=== PATIENT | male | born 1995 | race Caucasian/White ===

== ENCOUNTER 2022-10-08 17:53 | Emergency (ER) | payer OTHER, SELFPAY ==
[2022-10-08 17:53] VITALS: BP 141/56; PULSE 93; RESP 16; TEMP 36.8; O2SAT 99
[2022-10-08 18:31] VITALS: BP 131/55; O2SAT 99
[2022-10-08 18:59] LABS: Basophils Absolute Auto 0.1 K/mm3 (0.0-0.1); Basophils Percent Auto 0.4 % (0.2-1.2); Eosinophils Absolute Auto 0.1 K/mm3 (0-0.3); Eosinophils Percent Auto 0.3 % (0-4.4); Hematocrit 44.2 % (42.0-52.0); Hemoglobin 14.8 g/dL (14.0-18.0); Immature Granulocyte Absolute 0.14 K/mm3 (0.00-0.031); Immature Granulocyte Percent A 0.8 % (0-0.5); Lymphocytes Absolute Auto 1.02 K/mm3 (0.9-3.2); Lymphocytes Percent Auto 5.8 % (18.3-44.2); Mean Corpuscular HGB Conc 33.5 g/dl (32-36); Mean Corpuscular Hemoglobin 31.2 pg (26-34); Mean Corpuscular Volume 93.1 fl (80-100); Mean Platelet Volume 9.3 fl (7.4-10.4); Monocytes Absolute Auto 1.4 K/mm3 (0.1-0.6); Monocytes Percent Auto 7.9 % (2.6-8.5); Neutrophils Percent Auto 84.8 % (45.5-73.1); Platelet Count Result 140 k/mm3 (150-375); Red Blood Count 4.75 M/mm3 (4.6-6.20); Red Cell Distribution Width 13.4 % (11.5-14.5); White Blood Count 17.7 K/mm3 (4.5-10.0)
[2022-10-08 19:09] LABS: Alanine Aminotransferase 23 U/L (6-50); Albumin Level 4.2 g/dL (3.5-5.1); Alkaline Phosphatase 63 U/L (38-126); Anion Gap 7 mmol/L (8-16); Aspartate Amino Transferase 24 U/L (17-59); Bilirubin,Total 0.8 mg/dL (0.2-1.3); Blood Urea Nitrogen 11 mg/dL (9-20); Calcium 9.1 mg/dL (8.4-10.2); Carbon Dioxide 25 mmol/L (22-30); Chloride 104 mmol/L (98-107); Estimated CRCL calculation 157 ml/min; Estimated Glomerular Filt Rate > 60; Glucose 108 mg/dL (65-110); Potassium 3.8 mmol/L (3.4-5.0); Sodium 136 mmol/L (137-145)
[2022-10-08 19:11] VITALS: BP 135/58; PULSE 78; RESP 14; TEMP 37; O2SAT 100
[2022-10-08 19:18] LABS: Monoscreen Negative (Negative); Negative Monotest Control Negative (Negative); Positive Monotest Control Positive (Positive)
[2022-10-08 19:38] LABS: Strep Group A RT-PCR NOT DETECTED (Negative)
--- NOTE | 2022-10-08 19:43 | ED.GENADULT ---
HPI - General Adult General Chief complaint: Unspecified Stated complaint: tonsil pain Time Seen by Provider: 10/08/22 18:11 Source: patient Mode of arrival: ambulatory Limitations: no limitations History of Present Illness HPI narrative: This is a 26-year-old male who presents to the ED with chief complaint of sore throat and dysphagia for the past 3 days. Patient states he has history of multiple episodes of strep throat in the past. Reports he feels his tonsils are swollen. Reports swollen lymph nodes as well. Reports he is able to swallow liquids and solids, it is just somewhat difficult and painful at times. Reports associated malaise and bodyaches. Reports some night sweats. Reports a nonproductive cough. Denies any fevers, nausea, vomiting, rhinorrhea, chest pain, shortness of breath. Related Data Allergies Allergy/AdvReac Type Severity Reaction Status Date / Time No Known Allergies Allergy Verified 10/08/22 18:06 Review of Systems Review of Systems: All systems as dictated in HPI Exam Narrative: GENERAL: Well-appearing, well-nourished, and in no acute distress. HEAD: Normocephalic, atraumatic. EYES: PERRLA and EOMI. ENT: Bilateral 2+ tonsillar hypertrophy. Exudative lesions to bilateral tonsils. Posterior pharynx is without exudates but is erythematous. Uvula midline. Tolerating secretions. Airway intact. No trismus or drooling. Floor the mouth intact. No muffled voice Mild anterior cervical lymphadenopathy. Nares clear, no rhinorrhea or epistaxis. Mucous membranes moist. NECK: Supple. No adenopathy or masses. CHEST: No respiratory distress. Clear to auscultation. No wheezes rales or rhonchi HEART: Regular rate and rhythm. No murmur heard. Normal peripheral pulses. ABDOMEN: Soft, nontender, nondistended, normal active bowel sounds. MSK: Normal range of motion. No edema. SKIN: Warm, dry, no rash. NEURO: Alert and oriented x3. No focal deficits. PSYCH: Normal mood and affect. Course Vital Signs Vital signs: Vital Signs Temperature 98.2 F 10/08/22 17:53 Pulse Rate 93 10/08/22 17:53 Respiratory Rate 16 10/08/22 17:53 Blood Pressure 141/56 H 10/08/22 17:53 Pulse Oximetry 99 10/08/22 17:53 Oxygen Delivery Room Air 10/08/22 17:53 Temperature 98.6 F 10/08/22 19:11 Pulse Rate 93 10/08/22 20:25 Respiratory Rate 17 10/08/22 20:25 Blood Pressure 134/53 L 10/08/22 20:25 Pulse Oximetry 100 10/08/22 20:25 Oxygen Delivery Room Air 10/08/22 17:53 Medical Decision Making MDM Narrative Medical decision making narrative: This is a 26-year-old male who presents to the ED with chief complaint of sore throat and other viral URI symptoms. Vitals are normal. Afebrile. Exam does show erythematous, hypertrophied tonsils with exudates bilaterally. Uvula is midline. Low concern for TUBE BENDER or other deep space infection. He is tolerating secretions and does not have a muffled voice. Lab work does reveal an elevated white count but is otherwise unremarkable. Negative mono, strep, flu, COVID. Symptoms are consistent with pharyngitis. Prescribing Augmentin for possible false negative on the strep test today. Referral to ENT doctor given. He is stable for discharge. Feeling better with dexamethasone. Return precautions given and supportive measures discussed. Patient is understanding and agreeable with plan for discharge and follow-up with PCP/ENT. Vital Signs Vital Signs: Vital Signs Temperature 98.2 F 10/08/22 17:53 Pulse Rate 93 10/08/22 17:53 Respiratory Rate 16 10/08/22 17:53 Blood Pressure 141/56 H 10/08/22 17:53 Pulse Oximetry 99 10/08/22 17:53 Oxygen Delivery Room Air 10/08/22 17:53 Temperature 98.6 F 10/08/22 19:11 Pulse Rate 93 10/08/22 20:25 Respiratory Rate 17 10/08/22 20:25 Blood Pressure 134/53 L 10/08/22 20:25 Pulse Oximetry 100 10/08/22 20:25 Oxygen Delivery Room Air 10/08/22 17:53 Lab [facility]
[2022-10-08 19:49] LABS: Influenza A QL RT-PCR Negative (Negative); Influenza B QL RT-PCR Negative (Negative); RSV RNA, RT-PCR Negative (Negative); SARS-CoV-2 RNA PCR Negative (Negative)
[2022-10-08] MEDS: AMOXICILLIN/CLAVULANATE K 875-125 MG TAB 1 TABLET PO (20:22)
[2022-10-08 20:25] VITALS: BP 134/53; PULSE 93; RESP 17; O2SAT 100
== END 2022-10-08 20:28 | disposition home or self-care (01) ==
PROVIDERS: Emergency Provider Physician Assistant
DX: J02.9 Acute pharyngitis, unspecified (principal); Z20.822 Contact with and (suspected) exposure to COVID-19
CPT/HCPCS: 36415; 80053; 85025; 86308; 87637; 87651; 96374; 99284; A9270; J1100

== ENCOUNTER 2022-10-10 10:00 | Emergency (ER) | payer OTHER, SELFPAY ==
[2022-10-10 10:21] VITALS: BP 144/86; PULSE 64; RESP 16; TEMP 36.8; O2SAT 100
--- NOTE | 2022-10-10 11:38 | ED.URI ---
HPI - URI/Sore Throat General Chief Complaint: Upper Respiratory Infection Stated Complaint: difficulty breathing Time Seen by Provider: 10/10/22 10:14 History of Present Illness HPI Narrative: 26-year-old male reports for evaluation for a sore throat x 5 days. He reports pain worse with swallowing, states it feels like he is swallowing knives. Reports his tonsils look like blue cheese yesterday and had some difficulty breathing today while lying flat. He is able to swallow liquids and solids. He was seen here on 10/08 for pharyngitis and tested negative for strep, mono, COVID and flu. He was started on Augmentin given exudates on physical exam and a white count of 17.7. Patient states he has been taking the Augmentin and has not missed any doses. He states he reports today for steroids because the steroids helped significantly when he was here on the the other day. States he does feel like he has had some improvement since yesterday. He is denying current difficulty breathing, congestion, ear otalgia, headache, fever, vomiting. He does report a nonproductive dry cough. Related Data Allergies Allergy/AdvReac Type Severity Reaction Status Date / Time No Known Allergies Allergy Verified 10/08/22 18:06 Review of Systems Review of Systems: CONSTITUTIONAL: Denies fever, chills EYES: Denies visual changes, redness, or discharge. ENT: See HPI CARDIOVASCULAR: Denies chest pain, palpitations, or edema. RESPIRATORY: Denies cough or dyspnea. GASTROINTESTINAL: Denies abdominal pain, nausea, vomiting, or diarrhea. GENITOURINARY: Denies dysuria or hematuria. SKIN: Denies rash or itching. MUSCULOSKELETAL: Denies back pain, joint pain, or myalgia. NEUROLOGIC: Denies headache, numbness, dizziness, or weakness. PSYCHIATRIC: Denies anxiety or depression. Exam Narrative: GENERAL: Well-appearing, in no acute distress. Patient resting comfortably in exam bed. He is pleasant and conversational HEAD: Normocephalic EYES: PERRLA ENT: Nares clear. Mucous membranes moist. Bilateral tonsils with 2+ hypertrophy, erythema and exudates. Uvula is midline. No airway compromise. Tolerating secretions. No trismus or drooling. Patient does have a mildly muffled voice. NECK: Supple. CHEST: No respiratory distress. Clear to auscultation, no adventitious breath sounds. HEART: Regular rate and rhythm. No murmur heard. Normal peripheral pulses. ABDOMEN: Soft, nontender, normal active bowel sounds. EXTREMITIES: Normal range of motion. No edema. SKIN: Warm, dry, no rash. NEURO: No focal deficits. Alert and oriented x3. PSYCH: Normal mood and affect. Course Vital Signs Vital signs: Vital Signs Temperature 98.2 F 10/10/22 10:21 Pulse Rate 64 10/10/22 10:21 Respiratory Rate 16 10/10/22 10:21 Blood Pressure 144/86 H 10/10/22 10:21 Pulse Oximetry 100 10/10/22 10:21 Oxygen Delivery Room Air 10/10/22 10:21 Temperature 98.2 F 10/10/22 10:21 Pulse Rate 64 10/10/22 10:21 Respiratory Rate 16 10/10/22 10:21 Blood Pressure 144/86 H 10/10/22 10:21 Pulse Oximetry 100 10/10/22 10:21 Oxygen Delivery Room Air 10/10/22 10:21 MDM - URI/Sore Throat MDM Narrative Medical decision making narrative: 26-year-old male reports for evaluation for a sore throat x 5 days. He was evaluated here 2 days ago and tested negative for strep, COVID and flu, and started on Augmentin. He has not missed any doses. Exam shows tonsillar hypertrophy, erythema, exudates. He does have a mildly muffled voice. 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 I feel this is fair given there is no uvular deviation, he is tolerating his secretions, no trismus. He received a dose of steroids in the ED and I sent steroids to the pharmacy. Advised him to continue taking the Augmentin. He has an appointment scheduled
[2022-10-10 12:15] VITALS: O2SAT 100
[2022-10-10] MEDS: predniSONE 20 MG TABLET 60 MG PO (12:15)
== END 2022-10-10 12:15 | disposition home or self-care (01) ==
PROVIDERS: Emergency Provider Physician Assistant
DX: J02.8 Acute pharyngitis due to other specified organisms (principal)
CPT/HCPCS: 99283; J7512

== ENCOUNTER 2023-03-17 13:35 | Emergency (ER) | payer OTHER, SELFPAY ==
--- NOTE | ~2023-03-17 | CT_ITS ---
EXAMINATION: CTA chest PE protocol DATE: 03/17/2023 15:34 INDICATION: Hemoptysis. TECHNIQUE: Computed tomography angiography (CTA) of the chest was performed with 100 mL Omnipaque-350 intravenous contrast timed to evaluate the pulmonary arteries. Coronal maximum intensity projection 3D-reconstructions were created by the technologist. Automated exposure control and iterative reconst ruction technique were employed. The dose-length product was 745.58 mGy-cm. COMPARISON: None. FINDINGS: There are scattered centrilobular groundglass opacities throughout the lungs bilaterally. N o pleural effusion. The heart size is normal. No pericardial effusion. There is no pulmonary embolus. Calcifications in the spleen are consistent with old granulomatous disease. There is mild thoracic s pondylosis. IMPRESSION: 1. No pulmonary embolus. 2. Diffuse lung disease, most likely pneumonia. Reviewed, dictated and finalized at location E. OPERATOR
[2023-03-17 13:34] VITALS: BP 156/76; PULSE 114; RESP 18; TEMP 36.2; O2SAT 88
[2023-03-17 13:50] LABS: Basophils Absolute Auto 0.1 K/mm3 (0.0-0.1); Eosinophils Absolute Auto 0.4 K/mm3 (0-0.3); Eosinophils Percent Auto 3.5 % (0-4.4); Hematocrit 52.3 % (42.0-52.0); Hemoglobin 17.1 g/dL (14.0-18.0); Immature Granulocyte Absolute 0.14 K/mm3 (0.00-0.031); Immature Granulocyte Percent A 1.3 % (0-0.5); Lymphocytes Absolute Auto 2.91 K/mm3 (0.9-3.2); Lymphocytes Percent Auto 27.1 % (18.3-44.2); Mean Corpuscular HGB Conc 32.7 g/dl (32-36); Mean Corpuscular Hemoglobin 30.8 pg (26-34); Mean Corpuscular Volume 94.2 fl (80-100); Monocytes Absolute Auto 0.7 K/mm3 (0.1-0.6); Monocytes Percent Auto 6.9 % (2.6-8.5); Neutrophils Absolute Auto 6.5 K/mm3 (1.3-6.7); Neutrophils Percent Auto 60.2 % (45.5-73.1); Platelet Count Result 222 k/mm3 (150-375); Red Blood Count 5.55 M/mm3 (4.6-6.20); White Blood Count 10.7 K/mm3 (4.5-10.0)
--- NOTE | 2023-03-17 13:50 | ED.GENADULT ---
HPI - General Adult General Chief complaint: Shortness of Breath/Dyspnea Stated complaint: dyspnea, coughing up blood Time Seen by Provider: 03/17/23 13:37 27-year-old male presenting to the emergency department for evaluation after an episode hemoptysis. Patient states that he went to bed last night feeling fine and had some restless sleep when he woke up this morning he was having some shortness of breath and noticed the had some blood coming from his mouth. Patient states he has had some intermittent coughs. Patient was concerned so he called EMS. Patient is a smoker and does have history of asthma. Patient has a prior diagnosis of a bicuspid aortic valve but has not had follow-up with Cardiology since he was 18. Patient has had no surgical repair of the valve and is not on any blood thinners. Related Data Allergies Allergy/AdvReac Type Severity Reaction Status Date / Time No Known Allergies Allergy Verified 03/17/23 15:38 Review of Systems Review of Systems: All systems reviewed & are unremarkable except as noted in HPI and below PMFSH Social History Social History Smoking status: Never smoker Tobacco type: e-cigarettes/vaping Alcohol intake: current Lack of Transportation: No Lack of Food: Never True Current Housing: I Have Housing Concerned About Future Housing: No Difficulty Paying Gas/Electric Bills: No Difficulty Paying for Meds: No Currently Unemployed: No Education: High School Diploma/GED Difficulty w/ Childcare or Family Care: No Exam Narrative: APPEARANCE: Well appearing, no pain, no distress, well-nourished. HEAD: normocephalic, atraumatic. EYES: PERRLA/EOMI, conjunctivae clear. NOSE: Normal no drainage NECK: Supple. No adenopathy, no masses. RESPIRATORY: Airway patent, respirations nonlabored. Clear to auscultation bilaterally, no rales, rhonchi, wheezing. CARDIOVASCULAR: Regular rate and rhythm without murmurs rubs or gallops. ABDOMINAL: Soft, nontender, nondistended, normal bowel sounds MUSCULOSKELETAL: Moves all extremities. Strength/ROM intact, No edema, No calf tenderness. NEURO: Alert. Cranial nerves II through XII intact. Grossly intact SKIN: Warm, dry. Normal Color Course Course Emergency Course: 27-year-old male present to the ED for evaluation of blood on his face. Patient did have bite gilmore to his tongue bilaterally. Patient has a prior history of pseudo-seizure but patient states he does not take medication for. Patient states he had previously taking Keppra but states this made it worse. Patient has not had follow-up with a neurologist in years. Patient preferred not to be restarted on any anti epileptic medications. Patient's hypoxia resolved in the emergency department, CTA showed no evidence pulmonary embolism but did show evidence of pneumonia. Patient is being started antibiotics and being provided albuterol inhaler. Patient will be provided follow-up with Neurology. Vital Signs Vital signs: Vital Signs Temperature 97.2 F L 03/17/23 13:34 Pulse Rate 114 H 03/17/23 13:34 Respiratory Rate 18 03/17/23 13:34 Blood Pressure 156/76 H 03/17/23 13:34 Pulse Oximetry 88 L 03/17/23 13:34 Oxygen Delivery Room Air 03/17/23 13:34 Temperature 97.3 F L 03/17/23 15:33 Pulse Rate 100 03/17/23 18:38 Respiratory Rate 16 03/17/23 18:38 Blood Pressure 142/88 H 03/17/23 18:38 Pulse Oximetry 98 03/17/23 18:38 Oxygen Delivery Nasal Cannula 03/17/23 15:33 Oxygen Flow Rate 2 03/17/23 15:33 Medical Decision Making Differential Diagnosis Differential Diagnosis: Pneumonia, pulmonary embolism, pseudoseizures, seizure-like activity, tongue injury Vital Signs Vital Signs: Vital Signs Temperature 97.2 F L 03/17/23 13:34 Pulse Rate 114 H 03/17/23 13:34 Respiratory Rate 18 03/17/23 13:34 Blood Pressure 156/76 H 03/17/23 13:34 Pulse Oximetry 88 L
[2023-03-17 14:00] LABS: Prothrombin Time 13.2 Seconds (11.1-14.7)
[2023-03-17 14:01] LABS: Partial Thromboplastin Time 27.2 SECONDS (22.3-36.8)
[2023-03-17 14:04] VITALS: PULSE 95; RESP 14
[2023-03-17 14:04] LABS: Alanine Aminotransferase 32 U/L (6-50); Albumin Level 4.2 g/dL (3.5-5.1); Alkaline Phosphatase 59 U/L (38-126); Anion Gap 15 mmol/L (8-16); Aspartate Amino Transferase 46 U/L (17-59); Bilirubin,Total 0.7 mg/dL (0.2-1.3); Blood Urea Nitrogen 18 mg/dL (9-20); Calcium 8.9 mg/dL (8.4-10.2); Carbon Dioxide 18 mmol/L (22-30); Chloride 106 mmol/L (98-107); Estimated Glomerular Filt Rate > 60; Glucose 176 mg/dL (65-110); Potassium 3.7 mmol/L (3.4-5.0); Sodium 139 mmol/L (137-145)
[2023-03-17] MEDS: ALBUTEROL SULFATE NEB 2.5 MG/3 ML INH INHALATION (14:04)
[2023-03-17 14:44] VITALS: PULSE 96; RESP 14
[2023-03-17 14:44] LABS: Influenza A QL RT-PCR Negative (Negative); Influenza B QL RT-PCR Negative (Negative); RSV RNA, RT-PCR Negative (Negative); SARS-CoV-2 RNA PCR Negative (Negative)
[2023-03-17 15:01] LABS: Alveolar/Arterial O2 Gradient 109.3 mmHg; Base Excess ABG -3.3 mEq/l (+/-2.0); Carboxyhemoglobin 2.9 % THb (0-2.0); Fractional Inspired Oxygen 30 %; HCO3 ABG 18.8 mEq/l (22.0-26.0); Methemoglobin ABG 0.4 %THb (0-1.5); Oxygen Content ABG 22.3 %vol (16.0-22.0); Oxygen Saturation ABG 95.4 % (95.0-100.0); Oxyhemoglobin 92.3 % THb (90.0-100.0); PCO2 ABG 27.6 mmHg (35.0-45.0); PO2 ABG 72.2 mmHg (80.0-100.0); PO2 FiO2 Ratio Arterial Blood 2.41 %; Reduced Hemoglobin 4.4 %THb (0-5.0); Total Hemoglobin 17.2 g/dL (12.0-18.0); pH ABG 7.452 (7.350-7.450)
[2023-03-17 15:02] LABS: Modified Allen's Test Pass; Site Drawn LEFT RADIAL
[2023-03-17 15:03] LABS: Device NASAL CANNULA; Liters per Minute 2.5 LPM
--- NOTE | 2023-03-17 15:32 | ECG_ITS ---
Measurements Intervals [place] Rate: 101 P: 58 CA: 180 QRS: 33 QRSD: 105 T: 48 QT: 341 QTc: 442 Interpretive Statements SINUS TACHYCARDIA DELAYED PRECORDIAL R/S TRANSITION BASELINE ARTIFACT- I, III, AVR, AVL, AVF, V1-V2 BORDERLINE ECG NO PREVIOUS ECG AVAILABLE FOR COMPARISON Electronically Signed On 03-17-2023 16:32:46 [employer] by Stanislav Monae D.O.
[2023-03-17 15:33] VITALS: BP 135/55; PULSE 88; RESP 19; TEMP 36.3; O2SAT 96
[2023-03-17 16:48] VITALS: BP 115/48; PULSE 86; RESP 18; O2SAT 95
[2023-03-17] MEDS: ACETAMINOPHEN 500 MG TABLET 1000 MG PO (17:58)
[2023-03-17 18:38] VITALS: BP 142/88; PULSE 100; RESP 16; O2SAT 98
== END 2023-03-17 18:38 | disposition home or self-care (01) ==
PROVIDERS: Emergency Provider Emergency Medicine
DX: R56.9 Unspecified convulsions (principal); J18.9 Pneumonia, unspecified organism; Z20.822 Contact with and (suspected) exposure to COVID-19
CPT/HCPCS: 36415; 36600; 71275; 80053; 82375; 82805; 83050; 85025; 85610; 85730; 87637; 93005; 94640; 99284; A9270; Q9967

== ENCOUNTER 2023-03-30 01:18 | Emergency (ER) | payer OTHER, SELFPAY ==
--- NOTE | ~2023-03-30 | CT_ITS ---
Noncontrast CT scan of the left shoulder CLINICAL HISTORY: Injury TECHNIQUE: Axial noncontrast imaging of the left shoulder was performed. Sagittal and coronal reforma tted images were constructed. Dose reduction technique was used on this scan by utilizing automated e xposure control and iterative reconstruction technique. The dose-length product (DLP) was 394.11 mGy- cm. FINDINGS: There is a mildly displaced, comminuted fracture of the lesser tuberosity of the humerus. T here is probable minimal posterior subluxation of the humeral head articular surface with respect to the glenoid. No osseous fracture of the glenoid identified. AC joint intact. No gross soft tissue algorithm identified on noncontrast CT imaging. IMPRESSION: Mildly displaced, comminuted fracture of the lesser tuberosity of humerus. This could be related to p rior posterior dislocation injury given history of seizure. Orthopedic follow-up advised. Follow-up n onemergent MR could be considered to evaluate for posterior labral tear or other associated soft tiss ue injuries, especially if there is clinical suspicion for prior posterior shoulder dislocation. Reviewed, dictated and finalized at location . EL SERVICE CONSULTANT IMPRESSION: Mildly displaced, comminuted fracture of the lesser tuberosity of humerus. This could be related to prior posterior dislocation injury given history of seizur e. Orthopedic follow-up advised. Follow-up nonemergent MR could be considered t o evaluate for posterior labral tear or other associated soft tissue injuries, especially if there is clinical suspicion for prior posterior shoulder dislocat ion.
--- NOTE | ~2023-03-30 | XR_ITS ---
Left Shoulder Technique: AP and scapular Y views were obtained. Clinical History: Pain Findings: There is a probable fracture involving the lesser tuberosity region of the greater humerus, possibly reversal Sachs fracture. No dislocation evident currently. The glenohumeral and acromioclav icular joint spaces are preserved. Soft tissues are unremarkable. Impression: Probable fracture of the proximal humerus, probably involving the lesser tuberosity. Given history of prior seizure, this could represent reversal Hill-Sachs fracture related to prior posterior dislocat ion. Consider MR or CT to further evaluate fracture anatomy (MR would also provide additional informa tion regarding any associated soft tissue injuries related to prior posterior dislocation). Reviewed, dictated and finalized at location . OPERATOR Impression: Probable fracture of the proximal humerus, probably involving the lesser tubero sity. Given history of prior seizure, this could represent reversal Hill-Sachs fracture related to prior posterior dislocation. Consider MR or CT to further e valuate fracture anatomy (MR would also provide additional information regardin g any associated soft tissue injuries related to prior posterior dislocation).
[2023-03-30 01:21] VITALS: BP 162/54; PULSE 99; RESP 20; TEMP 36.2; O2SAT 100
[2023-03-30 04:48] VITALS: PULSE 78; RESP 16; O2SAT 100
[2023-03-30 04:54] VITALS: BP 113/91
[2023-03-30 06:16] VITALS: BP 125/63; PULSE 96; RESP 18; O2SAT 99
--- NOTE | 2023-03-30 06:39 | PC.NURSE ---
Pt requesting to take prescribed home medications for pain. Per EDP Zych, pt okayed to take Flexeril 10mg PO and Naproxen 500mg PO at this time.
[2023-03-30 07:22] VITALS: BP 122/56; PULSE 56; RESP 16; O2SAT 100
--- NOTE | 2023-03-30 07:42 | ED.GENADULT ---
HPI - General Adult General Chief complaint: Extremity Injury, Upper Stated complaint: Left shoulder pain since sz Time Seen by Provider: 03/30/23 06:53 History of Present Illness HPI narrative: 27-year-old male presented to the emergency department for evaluation of left shoulder pain. Patient had a recent seizure on 03/17 and states since then he has had worsening left shoulder pain. Patient did present to an urgent care and was present I did some muscle relaxant. Patient denies any additional seizure-like activity. Patient does have follow-up with Neurology scheduled at the end of April. Related Data Allergies Allergy/AdvReac Type Severity Reaction Status Date / Time No Known Allergies Allergy Verified 03/30/23 04:47 Review of Systems Review of Systems: All systems reviewed & are unremarkable except as noted in HPI and below PMFSH Social History Social History Smoking status: Never smoker Tobacco type: e-cigarettes/vaping Alcohol intake: current Lack of Transportation: No Lack of Food: Never True Current Housing: I Have Housing Concerned About Future Housing: No Difficulty Paying Gas/Electric Bills: No Difficulty Paying for Meds: No Currently Unemployed: No Education: High School Diploma/GED Difficulty w/ Childcare or Family Care: No Exam Narrative: APPEARANCE: Well appearing, no pain, no distress, well-nourished. HEAD: normocephalic, atraumatic. EYES: PERRLA/EOMI, conjunctivae clear. NOSE: Normal no drainage EARS:TMS clear with good light reflex. THROAT: Pharynx clear, no exudate. NECK: Supple. No adenopathy, no masses. RESPIRATORY: Airway patent, respirations nonlabored. Clear to auscultation bilaterally, no rales, rhonchi, wheezing. CARDIOVASCULAR: Regular rate and rhythm without murmurs rubs or gallops. ABDOMINAL: Soft, nontender, nondistended, normal bowel sounds MUSCULOSKELETAL: Decreased range of motion of the left shoulder NEURO: Alert. Cranial nerves II through XII intact. Good gait. Good coordination SKIN: Warm, dry. Normal Color Course Course Emergency Course: 27-year-old male presenting to the ED for evaluation of left shoulder pain, x-ray was concern for possible fracture so CT was recommended. CT did show a humerus fracture. Patient was provided a shoulder immobilizer. Patient was updated on results of his imaging and patient was encouraged close follow-up with Orthopedics. All questions concerns were addressed. Patient is well-appearing at time of discharge. Vital Signs Vital signs: Vital Signs Temperature 97.2 F L 03/30/23 01:21 Pulse Rate 99 03/30/23 01:21 Respiratory Rate 20 03/30/23 01:21 Blood Pressure 162/54 H 03/30/23 01:21 Pulse Oximetry 100 03/30/23 01:21 Oxygen Delivery Room Air 03/30/23 01:21 Temperature 97.2 F L 03/30/23 01:21 Pulse Rate 56 L 03/30/23 07:22 Respiratory Rate 16 03/30/23 07:22 Blood Pressure 122/56 L 03/30/23 07:22 Pulse Oximetry 100 03/30/23 07:22 Oxygen Delivery Room Air 03/30/23 01:21 Medical Decision Making Differential Diagnosis Differential Diagnosis: Shoulder fracture, shoulder strain, shoulder dislocation Vital Signs Vital Signs: Vital Signs Temperature 97.2 F L 03/30/23 01:21 Pulse Rate 99 03/30/23 01:21 Respiratory Rate 20 03/30/23 01:21 Blood Pressure 162/54 H 03/30/23 01:21 Pulse Oximetry 100 03/30/23 01:21 Oxygen Delivery Room Air 03/30/23 01:21 Temperature 97.2 F L 03/30/23 01:21 Pulse Rate 56 L 03/30/23 07:22 Respiratory Rate 16 03/30/23 07:22 Blood Pressure 122/56 L 03/30/23 07:22 Pulse Oximetry 100 03/30/23 07:22 Oxygen Delivery Room Air 03/30/23 01:21 Imaging Data Radiologist's impression: Impressions Shoulder X-Ray 03/30/23 05:49 Impression: Probable fracture of the proximal humerus, probably involving the lesser tuberosity. Given history of prior
== END 2023-03-30 09:15 | disposition home or self-care (01) ==
PROVIDERS: Emergency Provider Emergency Medicine
DX: S42.262A Displaced fracture of lesser tuberosity of left humerus, initial encounter for closed fracture (principal); X58.XXXA Exposure to other specified factors, initial encounter
CPT/HCPCS: 73030; 73200; 99284